=== PATIENT | male | born 1945 | race Caucasian/White ===

== ENCOUNTER → 2018-04-11 | Outpatient (CLI) | payer MEDICARE, BC | END | disposition home or self-care (01) | LOC: PCVCCLINIC 13:32 | PROVIDERS: ATTEND Internal Medicine | DX: I25.10 Atherosclerotic heart disease of native coronary artery without angina pectoris (principal); R07.9 Chest pain, unspecified; R94.31 Abnormal electrocardiogram [ECG] [EKG]; I10 Essential (primary) hypertension; E78.5 Hyperlipidemia, unspecified; F17.200 Nicotine dependence, unspecified, uncomplicated; F41.9 Anxiety disorder, unspecified; Z88.8 Allergy status to other drugs, medicaments and biological substances; Z79.899 Other long term (current) drug therapy | CPT/HCPCS: 93005; G0463 ==

== ENCOUNTER → 2018-04-19 | Outpatient (CLI) | payer MEDICARE, BC ==
--- NOTE | 2018-04-20 17:56 | PCVCIMAG ---
APPROVED REPORT Imaging Protocol: Rest Tc-99m/Stress Tc-99m 1 day Study performed: 04/19/2018 08:47:40 Indication: Chest pain, Dyspnea Patient Location: Out-Patient Stress Nurse: Anabela Childs RN, Tierra Harris RN MS Tech:EAN MadridMT Ht: 5 ft 10 in Wt: 195 lbs BSA: 2.07 m2 HR: 46 bpm BP: 200/88 mmHg BMI: 27.97 Rhythm: Sinus Bradycardia, LBBB Medical History Medical History: HTN, Hyperlipidemia, Current Smoker, CAD Medications: Coreg, Plavix, NTG, Lisinopril, Crestor Allergies: ASA Cardiac Risk Factors: Age Previous Cardiac Procedures: CABG Pretest Chest Pain Characteristics: No chest pain Exercise History: Sedentary Meds Held (24 hrs): Coreg Resting Data Rest SPECT myocardial perfusion imaging was performed in supine position 45 minutes following the intravenous injection of 10.2 mCi of Tc-99m Sestamibi. Time of rest injection: 0800 Date: 04/19/2018 Administration Route: IV Administration Site: Right AC Pharmacologic Stress Pharmacologic stress test was performed by injecting Regadenoson 0.4 mg IV push over 10-15 seconds immediately followed by the intravenous injection of 34.5 mCi of Tc-99m Sestamibi. Time of stress injection: 0920 Date: 04/19/2018 Administration Route: IV Administration Site: Right AC Gated Stress SPECT was performed 45 minutes after stress injection. The images were gated to evaluate regional wall motion and calculate left ventricular ejection fraction. Stress Test Details Stress Test: Pharmacologic stress testing performed using 0.4 mg of regadenoson per 5 mL given IV over 10 seconds. Reason for pharmacologic stress test: LBBB. HRMax Heart Rate (APMHR): 148 bpm Resting HR: 46 bpmTarget HR (85% APMHR): 125 bpm Max HR Achieved: 71 bpm % of APMHR: 47 Recovery HR: 56 bpm BP Resting BP: 200/88 mmHg Max BP: 209/94 mmHg Recovery BP: 163/84 mmHg ECG Resting ECG: Sinus Bradycardia, LBBB Stress ECG: Sinus Rhythm, LBBB Recovery ECG: Sinus Bradycardia, LBBB Clinical Reason for Termination: Completed protocol Stress Symptoms: Profound Dyspnea Exercise duration: 0 min 55 sec Symptoms resolved with caffeine. Stress ECG Conclusion 1. adequate response to iv lexiscan 2. inadequate heart rate for ecg diagnosis Study Data Post stress, the left ventricular ejection was 51%.. SSS: 6 SRS: 0 SDS: 6 TID = 1.09. Perfusion There is a medium area of moderately reduced uptake in the mid and apical segment of the anterolateral wall which is seen on the stress images and improves on the resting images. This area thickens and moves normally and is most consistent with ischemia. Nuclear Conclusion ECG Findings: non-diagnostic Clinical Findings: negative for ischemia Nuclear Findings: positive for ischemia Exercise Capacity: not assessed Left Ventricular Function: normal 1. intermediate to high risk study with reversible anterolateral wall defect suggestive for ischemia <Conclusion> 1. adequate response to iv lexiscan 2. inadequate heart rate for ecg diagnosis
== END | disposition home or self-care (01) ==
LOC: PCVCIMAG 07:52
PROVIDERS: ATTEND Internal Medicine
DX: R07.9 Chest pain, unspecified (principal); R06.09 Other forms of dyspnea; I10 Essential (primary) hypertension; E78.5 Hyperlipidemia, unspecified; F17.210 Nicotine dependence, cigarettes, uncomplicated
CPT/HCPCS: 78452; 93017; A9500

== ENCOUNTER → 2018-04-20 | Outpatient (CLI) | payer MEDICARE, BC ==
[~2018-04-20] MED LIST: REGADENOSON 0.4 MG/5 ML DISP.SYRIN. IV ONE
--- NOTE | 2018-04-20 15:44 | PCVCIMAG ---
EXAM: BILATERAL RENAL ULTRASOUND AND BILATERAL RENAL DUPLEX INDICATION: Hypertension FINDINGS: Right kidney: Length measures 10.5 cm. No hydronephrosis or extensive renal scarring. Right renal duplex: Adequate technical quality. Increased systolic velocity proximal vessel of 269 cm/s consistent with 50-60% renal artery stenosis. The aortic to renal artery ratio is 3.6. The renal vein is patent. Left kidney: Length measures 12.1 cm. No hydronephrosis or extensive renal scarring. Left renal duplex: Adequate technical quality. No sonographic evidence of renal artery stenosis. The aortic to renal artery ratio is 2.6. The renal vein is patent. Bladder: No obvious abnormalities. IMPRESSION: 50-60% stenosis proximal right renal artery. No definite left renal artery stenosis. 3.0 cm infrarenal abdominal aortic aneurysm is incidentally noted. Further evaluation of these findings with CTA of the abdomen and pelvis may be helpful. LOC:[id number]
--- NOTE | 2018-04-22 16:32 | PCVCIMAG ---
APPROVED REPORT Study performed: 04/20/2018 14:19:50 EXAM: Comprehensive 2D, Doppler, and color-flow Echocardiogram Patient Location: Echo lab Room #: 2Status: routine BSA: 2.07 HR: 43 bpmBP: 148/80 mmHg Rhythm: Bradycardia, LBBB Other Information Study Quality: Adequate Risk Factors: Cardiac Risk Factors: HTN, Smoking, Hyperlipidemia Indications CAD Hypertension/HDD S/P CABG 2D Dimensions IVSd: 13.60 (7-11mm)LVOT Diam: 20.88 (18-24mm) LVDd: 57.76 mm PWd: 12.00 (7-11mm) LVDs: 36.79 (25-40mm)Aortic Arch: 24.0 (22-36mm) Left Atrium: 42.00 (27-40mm) Aortic Root: 27.36 mm LV Single Plane 4CH: 43.17 % LV Single Plane 2CH: 48.57 % Biplane EF: 45.4 % Volumes Left Atrial Volume (Systole) Single Plane 4CH: 72.87 mLSingle Plane 2CH: 77.03 mL Biplane LA Volume: 80.00 mLLA ESV Index: 38.00 mL/m2 Aortic Valve AoV Peak Caio.: 1.77 m/s AO Peak Gr.: 12.49 mmHgLVOT Max P.63 mmHg LVOT Max V: 0.91 m/s ADELAIDA Vmax: 1.77 cm2 Mitral Valve E/A Ratio: 0.8 MV Decel. Time: 333.00 ms MV E Max Caio.: 0.68 m/s MV A Caio.: 0.84 m/s IVRT: 200.69 ms TDI E/Lateral E': 11.33E/Medial E': 17.00 Medial E' Caio.: 0.04 m/s Lateral E' Caio.: 0.06 m/s Pulmonary Valve PV Peak Caio.: 1.02 m/sPV Peak Gr.: 4.13 mmHg Pulmonary Vein P Vein S: 0.51 m/sP Vein A: 0.38 m/s P Vein D: 0.47 m/sP Vein A Dur.: 183.4 msec P Vein S/D Ratio: 1.09 Tricuspid Valve TR Peak Caio.: 2.47 m/s TR Peak Gr.: 24.47 mmHg TV Vmax: 0.79 m/sPA Pressure: 32.00 mmHg Left Ventricle Left ventricle is borderline dilated. There is normal LV segmental wall motion. Mild concentric left ventricular hypertrophy. Left ventricular systolic function is mildly decreased. LVEF is approx 50%. Grade I - abnormal relaxation pattern. Right Ventricle The right ventricle is normal size. The right ventricular systolic function is normal. Atria Left atrium is mildly dilated. The right atrium size is normal. Aortic Valve Aortic valve is trileaflet. Aortic valve leaflets are mildly sclerotic but open well. Trace aortic regurgitation. There is no aortic valvular stenosis. Mitral Valve The mitral valve is normal in structure. Trace mitral regurgitation. No evidence of mitral valve stenosis. Tricuspid Valve The tricuspid valve is normal in structure. Trace to mild tricuspid regurgitation with a PA pressure of 32 mmHg. Pulmonic Valve The pulmonary valve is normal in structure. There is no pulmonic valvular regurgitation. Great Vessels The aortic root is normal in size. Ascending aorta is not well visualized. Aortic arch is normal in caliber. IVC is normal in size and collapses >50% with inspiration. Pericardium There is no pericardial effusion. There is no pleural effusion. <Conclusion> Left ventricle is borderline dilated. LVEF is approx 50%. Left atrium is mildly dilated. Aortic valve is trileaflet. Aortic valve leaflets are mildly sclerotic but open well. Trace aortic regurgitation. The mitral valve is normal in structure. Trace mitral regurgitation. The tricuspid valve is normal in structure. Trace to mild tricuspid regurgitation with a PA pressure of 32 mmHg. The pulmonary valve is normal in structure. Ascending aorta is not well visualized. Aortic arch is normal in caliber. There is no pericardial effusion.
== END | disposition home or self-care (01) ==
LOC: PCVCIMAG 13:33
PROVIDERS: ATTEND Internal Medicine
DX: I10 Essential (primary) hypertension (principal); I71.4 Abdominal aortic aneurysm, without rupture; I25.10 Atherosclerotic heart disease of native coronary artery without angina pectoris; Z95.1 Presence of aortocoronary bypass graft
CPT/HCPCS: 76770; 93306; 93975; J2785

== ENCOUNTER → 2018-04-25 | Outpatient (CLI) | payer MEDICARE, BC | END | disposition home or self-care (01) | LOC: PCVCCLINIC 11:03 | PROVIDERS: ATTEND Internal Medicine | DX: Z01.812 Encounter for preprocedural laboratory examination (principal); I25.10 Atherosclerotic heart disease of native coronary artery without angina pectoris; R94.39 Abnormal result of other cardiovascular function study; I10 Essential (primary) hypertension; I73.9 Peripheral vascular disease, unspecified; F17.200 Nicotine dependence, unspecified, uncomplicated | CPT/HCPCS: 36415; G0463 ==

== ENCOUNTER → 2018-06-05 | Outpatient (CLI) | payer MEDICARE, BC | END | disposition home or self-care (01) | LOC: PCVCCLINIC 11:46 | PROVIDERS: ATTEND Internal Medicine | DX: I25.118 Atherosclerotic heart disease of native coronary artery with other forms of angina pectoris (principal); I10 Essential (primary) hypertension; I73.9 Peripheral vascular disease, unspecified; N52.1 Erectile dysfunction due to diseases classified elsewhere; E78.5 Hyperlipidemia, unspecified; F17.210 Nicotine dependence, cigarettes, uncomplicated | CPT/HCPCS: G0463 ==

== ENCOUNTER → 2018-12-05 | Outpatient (CLI) | payer MEDICARE, BC | END | disposition home or self-care (01) | LOC: PCVCCLINIC 10:25 | PROVIDERS: ATTEND Internal Medicine | DX: I25.10 Atherosclerotic heart disease of native coronary artery without angina pectoris (principal); I10 Essential (primary) hypertension; R00.1 Bradycardia, unspecified; E78.5 Hyperlipidemia, unspecified; M19.90 Unspecified osteoarthritis, unspecified site; F17.200 Nicotine dependence, unspecified, uncomplicated; Z88.8 Allergy status to other drugs, medicaments and biological substances; Z79.899 Other long term (current) drug therapy | CPT/HCPCS: 36415; 80061; 93005; G0463 ==